=== PATIENT | female | born 1990 | race Caucasian/White ===

== ENCOUNTER 2018-04-09 12:15 | Emergency (ER) | payer MEDICAID ==
[~2018-04-09] VITALS: Ht 157.5 cm; Wt 156.9 kg
[~2018-04-09 12:15] MED LIST: DOXY100T PO
[2018-04-09] MEDS ORDERED: OXYcodone/APAP 5/325MG TABLET ONE (12:35)
[2018-04-09] MEDS ORDERED: OXYcodone/APAP 5/325MG TABLET PO ONE (13:00)
[2018-04-09 13:04] VITALS: BP 132/93
== END 2018-04-09 14:05 | disposition home or self-care (01) ==
LOC: ED 13:10
DX: K02.9 Dental caries, unspecified (principal); K08.89 Other specified disorders of teeth and supporting structures; E66.9 Obesity, unspecified
CPT/HCPCS: 99283